=== PATIENT | female | born 1960 | race Caucasian/White ===

== ENCOUNTER 2020-06-22 07:32 | Outpatient (REF) | payer BC, SELFPAY ==
--- NOTE | ~2020-06-22 | MM_ITS ---
EXAMINATION: MM SCREENING DIGITAL BREAST TOMOSYNTHESIS, BILATERAL CLINICAL INFORMATION: Screening. Asymptomatic. The lifetime risk of breast cancer based on the Tyrer-Cuzick Model is 7%. COMPARISON: Mammography: 06/17/2019, 06/11/2018, 06/03/2017 TECHNIQUE: Digital breast tomosynthesis is performed in both the craniocaudal and mediolateral oblique views along with computer-aided detection (CAD). Synthesized 2D images are generated from the tomosynthesis. Additional left MLO view is provided. FINDINGS: There are scattered areas of fibroglandular density (ACR BI-RADS breast composition Category b). There are no significant masses, abnormal calcifications, or other abnormalities. Parenchymal pattern is similar to prior exams. No significant changes. MM/MM tomosynthesis screening BI IMPRESSION: No mammographic evidence of malignancy. ASSESSMENT: BI-RADS 1: Negative RECOMMENDATION: Routine annual mammography screening. This patient's information was entered into a reminder system with a target due date for their next mammogram.
== END 2020-06-22 07:33 | disposition home or self-care (01) ==
LOC: HO.MAMMO 07:32
PROVIDERS: PCP Internal Medicine; Visit Provider Internal Medicine
DX: Z12.31 Encounter for screening mammogram for malignant neoplasm of breast (principal)
CPT/HCPCS: 77063; 77067

== ENCOUNTER 2021-06-28 07:20 | Outpatient (REF) | payer BC, SELFPAY ==
--- NOTE | ~2021-06-28 | MM_ITS ---
EXAMINATION: MM SCREENING DIGITAL BREAST TOMOSYNTHESIS, BILATERAL CLINICAL INFORMATION: Screening. Asymptomatic. The lifetime risk of breast cancer based on the Tyrer-Cuzick Model is 7%. COMPARISON: Mammography: 06/22/2020, 06/17/2019, 06/11/2018 TECHNIQUE: Digital breast tomosynthesis is performed in both the craniocaudal and mediolateral oblique views along with computer-aided detection (CAD). Synthesized 2D images are generated from the tomosynthesis. FINDINGS: There are scattered areas of fibroglandular density (ACR BI-RADS breast composition Category b). There are no significant masses, abnormal calcifications, or other abnormalities. Parenchymal pattern is similar to prior studies. There is no developing density or architectural abnormality. The axilla and skin contours are unremarkable. No significant changes. MM/MM tomosynthesis screening BI IMPRESSION: No mammographic evidence of malignancy. ASSESSMENT: BI-RADS 1: Negative RECOMMENDATION: Routine annual mammography screening. This patient's information was entered into a reminder system with a target due date for their next mammogram.
== END 2021-06-28 07:21 | disposition home or self-care (01) ==
LOC: HO.MAMMO 07:20
PROVIDERS: PCP Internal Medicine; Visit Provider Internal Medicine
DX: Z12.31 Encounter for screening mammogram for malignant neoplasm of breast (principal)
CPT/HCPCS: 77063; 77067

== ENCOUNTER 2022-01-31 08:02 | Outpatient (REF) | payer BC, SELFPAY ==
[2022-01-31 09:58] LABS: Alanine Aminotransferase 16 U/L (0-31); Albumin Level 4.5 g/dL (3.5-5.0); Alkaline Phosphatase 87 U/L (39-117); Anion Gap 15 (12-20); Aspartate Amino Transferase 21 U/L (5-31); Bilirubin Total 0.5 mg/dL (0.0-1.0); Blood Urea Nitrogen 16 mg/dL (9-16); Calcium 9.4 mg/dL (8.4-10.2); Carbon Dioxide 25 mmol/L (22-29); Chloride 107 mmol/L (96-108); Cholesterol 215 mg/dL; Estimated Glomerular Filt Rate > 60; Glucose Fasting 84 mg/dL (60-99); HDL Cholesterol 58 mg/dL; LDL Cholesterol Calculated 143 mg/dl; Potassium 4.1 mmol/L (3.3-5.1); Sodium 143 mmol/L (135-145); Total Protein 6.9 g/dL (6.5-8.0); Triglycerides 74 mg/dL
== END 2022-01-31 08:03 | disposition home or self-care (01) ==
LOC: HO.LAB 08:02
PROVIDERS: PCP Internal Medicine; Visit Provider Internal Medicine
DX: E78.5 Hyperlipidemia, unspecified (principal); E78.00 Pure hypercholesterolemia, unspecified
CPT/HCPCS: 36415; 80053; 80061

== ENCOUNTER 2022-07-07 11:00 | Outpatient (REF) | payer BC, SELFPAY ==
--- NOTE | ~2022-07-07 | MM_ITS ---
EXAMINATION: MM SCREENING DIGITAL BREAST TOMOSYNTHESIS, BILATERAL CLINICAL INFORMATION: Screening. Asymptomatic. The lifetime risk of breast cancer based on the Tyrer-Cuzick Model is 8%. COMPARISON: Mammography: 06/28/2021, 06/22/2020, 06/17/2019 TECHNIQUE: Digital breast tomosynthesis is performed in both the craniocaudal and mediolateral oblique views along with computer-aided detection (CAD). Synthesized 2D images are generated from the tomosynthesis. Additional left MLO view is provided. FINDINGS: There are scattered areas of fibroglandular density (ACR BI-RADS breast composition Category b). There are no significant masses, abnormal calcifications, or other abnormalities. No architectural abnormality or developing density or significant change from prior studies. MM/MM tomosynthesis screening BI IMPRESSION: No mammographic evidence of malignancy. ASSESSMENT: BI-RADS 1: Negative RECOMMENDATION: Routine annual mammography screening. This patient's information was entered into a reminder system with a target due date for their next mammogram.
== END 2022-07-07 11:01 | disposition home or self-care (01) ==
LOC: HO.MAMMO 11:00
PROVIDERS: PCP Internal Medicine; Visit Provider Internal Medicine
DX: Z12.31 Encounter for screening mammogram for malignant neoplasm of breast (principal)
CPT/HCPCS: 77063; 77067

== ENCOUNTER 2023-02-08 07:51 | Outpatient (REF) | payer BC, SELFPAY ==
[2023-02-08 08:55] LABS: Alanine Aminotransferase 21 U/L (0-31); Albumin Level 4.2 g/dL (3.5-5.0); Alkaline Phosphatase 93 U/L (39-117); Anion Gap 15 (12-20); Aspartate Amino Transferase 23 U/L (5-31); Bilirubin Total 0.6 mg/dL (0.0-1.0); Blood Urea Nitrogen 14 mg/dL (9-16); Calcium 9.5 mg/dL (8.4-10.2); Carbon Dioxide 24 mmol/L (22-29); Chloride 108 mmol/L (96-108); Cholesterol 216 mg/dL (<200); Estimated Glomerular Filt Rate > 60; Glucose Fasting 90 mg/dL (60-99); HDL Cholesterol 64 mg/dL (>40); LDL Cholesterol Calculated 134 mg/dL (<100); Potassium 3.9 mmol/L (3.3-5.1); Sodium 143 mmol/L (135-145); Total Protein 6.9 g/dL (6.5-8.0); Triglycerides 94 mg/dL (<150)
== END 2023-02-08 07:52 | disposition home or self-care (01) ==
LOC: HO.LAB 07:51
PROVIDERS: PCP Internal Medicine; Visit Provider Internal Medicine
DX: Z00.00 Encounter for general adult medical examination without abnormal findings (principal); E78.5 Hyperlipidemia, unspecified
CPT/HCPCS: 36415; 80053; 80061

== ENCOUNTER 2023-02-16 15:38 | Outpatient (AMB) | payer BC, SELFPAY ==
--- NOTE | 2023-02-16 15:40 | A.OFFPC_ITS ---
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 Accompanied by: Self / Same As Patient Allergies budesonide [Pulmicort] Allergy (Intermediate, Verified 02/16/23 15:47) muscle cramps fluticasone [Advair Diskus] Allergy (Intermediate, Verified 02/16/23 15:47) muscle cramps montelukast [Singulair] Allergy (Intermediate, Verified 02/16/23 15:47) muscle ache salmeterol [Advair Diskus] Allergy (Intermediate, Verified 02/16/23 15:47) muscle cramps Medication List - Last Reconciled 02/16/23 by Thu Guerrero MD fluticasone propionate 44 mcg/actuation (Flovent HFA) inhalation multivit with min-folic acid 200 mcg (Women's Multivitamin Gummies) tabs PO witch tana 50% (Hemorrhoidal (witch tana)) 1 pad topical BID-QID PRN Tobacco use date assessed: 06/04/22 Dental Screening Dental Screen Date: 02/16/23 Did you have a dental visit in the last 12 months?: Yes Did you have a dental problem in the last 6 months where you did not have access to dental care?: No Was dental information given to patient?: Patient has dentist HPI HPI Comments History of Present Illness Details This is a 62-year-old female that comes for her physical exam. Denies any chest pain or shortness of breath. Last mammogram was 2022 and was normal. Last Pap smear was a year ago at [facility] and was normal as per patient. Last colonoscopy was 9 years ago at [facility]. Next colonoscopy will be 2023. Has moderate lumbar degenerative disc disease follow by [facility]. FOR[facility]LY [facility], [facility] Medical History Moderate persistent asthma Back pain GERD (gastroesophageal reflux disease) Skin lesion Pure hypercholesterolemia Surgical History No pertinent past surgical history Family History Father No problems noted. Mother Bronchiectasis CKD (chronic kidney disease) Diabetes mellitus Mental health disorder Sister No problems noted. Sister No problems noted. Son No problems noted. Daughter No problems noted. Social History Housing: House Alcohol intake: never Patient Tobacco Use Status: Never used Tobacco Tobacco use type: Cigarette e-Cigarette/Vaping Use: Never Used Second Hand Smoke Exposure: No service: No Current occupational status: employed Current occupational exposures/hazards: No Cognitive needs: No Hearing needs: No Vision needs: No Questionnaire Thrive Questionnaire Date Thrive assessed: 06/04/22 SIRIA-7 AMB Questionnaire SIRIA-7 Date SIRIA - 7 assessed: 06/04/22 Source: Developed by Drs. Ed Mendieta, Kerri Mahoney, Micah Burr and colleagues, with an educational carmen from [employer]. Review of Systems Const All systems reviewed & are unremarkable except as noted in HPI and below Eyes Reports no additional complaints, Denies change in vision and Denies other visual disturbances Card Denies chest pain at rest, Denies chest pain with activity, Denies edema, Denies irregular heart rhythm, Denies claudication, Denies dyspnea, Denies dyspnea on exertion, Denies orthopnea, Denies paroxysmal nocturnal dyspnea and Denies slow heart rate Resp Denies cough, Denies dyspnea and Denies dyspnea on exertion GI Denies abdominal pain, Denies change in bowel habits, Denies excessive flatus, Denies nausea and Denies vomiting Denies urinary incontinence, Denies urinary hesitancy and Denies urinary urgency Musc Denies abnormal gait, Reports back pain, Denies atrophy, Denies deformity and Denies limited range of motion Skin/Breast Denies bleeding lesions, Denies changing lesions and Denies rash Neuro Denies abnormal gait and Denies lack of coordination Physical exam (Primary Care) Vital Signs: Last Vital Signs Pulse 98 02/16/23 15:42 BP 148/70 H 02/16/23 15:42 Pulse Ox 99 02/16/23 15:42 Oxygen Delivery Method Room Air 02/16/23 15:42 BMI result Body Mass Index 21.4 Tobacco/Smoking Status: Tobacco use Status Tobacco use date assessed 06/04/22 02/16/23 15:45 Patient Tobacco Use Status Never used Tobacco 02/16/23 15:45 Tobacco use type Cigarette 02/16/23 15:45 e-Cigarette/Vaping Use Never Used 02/16/23 15:45 Thrive Assessment: Date of Thrive Assessment Date Thrive assessed 06/04/22 02/16/23 15:45 Const Orientation/consciousness: patient oriented x3 [facility] Head: Yes normal to inspection, Yes normocephalic and Yes atraumatic Ears: external ears normal Eyes General: appearance normal, both eyes and all related structures Eyelids: Yes eyelids normal Conjunctivae: conjunctivae normal Neck Neck: Yes normal visual inspection and Yes supple Resp Effort & Inspection: normal respiratory effort Auscultation: clear to auscultation bilaterally Cardio Jugular venous distension: no JVD Rate: regular rate Rhythm: regular rhythm Heart sounds: S1 normal heart sound present and S2 normal heart sound present GI Inspection: Yes normal to inspection Palpation (GI): Soft to palpation and nontender Auscultation: normal bowel sounds Skin General skin exam: no rashes or lesions noted Neuro General: patient oriented x3 and no focal motor deficits Extrem General: Yes full ROM Psych Appearance: grossly normal Office Procedures Flu Questionnaire Does the patient have a severe egg allergy?: No Does the patient have severe life threatening allergies?: No Does the patient have a fever or illness today?: No Has the patient ever had Guillain-Eveleth Syndrome?: No Has the patient ever had any past reaction to a flu shot?: No Immunizations flu vacc [id number] 6mos up(PF) 60 mcg(15 mcgx4)/0.5 mL IM syringe Performing Provider: Thu Guerrero MD Performing Location: [facility] Administered by: SUSAN Keane on 02/16/23 16:02 Dose Route Admin Location Dispensed Lot Number Expiration Date NDC Teacher Resource 0.5 mL IM Right Deltoid 0.5 mL [id number] 10/31/23 13148-900-34 [employer] VIS Given Date VIS Provided VIS Publication Date 02/16/23 Single Vaccine 20 Eligibility Eligibility Date Funding Source Not [facility] Eligible 02/16/23 Private Assessment and Plan Assessment & Plan (1) Physical exam: Code(s): Z00.00 - Encounter for general adult medical examination without abnormal findings Plan: Repeat in a year. Orders: Orders Influenza [id number] Immunization Today Z23 - Encounter for immunization Medications: New fluticasone propionate 44 mcg/actuation (Flovent HFA) 2 puffs inhalation BID 10.6 grams 6RF 30 days J45.40 - Moderate persistent asthma, uncomplicated Coding Level of Care Code Est Pt Prev Care 18-39y(99665) Diagnoses Physical exam Z00.00 Time Spent (min) 32
[2023-02-16 15:42] VITALS: BP 148/70; PULSE 98; O2SAT 99; BMI 21.4
== END 2023-02-16 16:05 | disposition home or self-care (01) ==
PROVIDERS: Visit Provider Internal Medicine
DX: Z23 Encounter for immunization (principal); Z00.00 Encounter for general adult medical examination without abnormal findings
CPT/HCPCS: 90471; 90686; 99396

== ENCOUNTER 2023-03-12 14:37 | Outpatient (REF) | payer BC, SELFPAY ==
--- NOTE | ~2023-03-12 | MM_ITS ---
EXAMINATION: BONE DENSITOMETRY CLINICAL INDICATION: Postmenopausal state. COMPARISON: Baseline BD dated 12/25/2014. TECHNIQUE: Using a [employer] DXA System (software version: 13.1) manufactured by [email or web address], dual-energy x-ray absorptiometry was performed of the lumbar spine and left hip. The images are of good technical quality. Summary results are attached. FINDINGS: LEFT FEMUR, NECK: Current: BMD 0.656 g/cm2, Z-score -1.1, T-score -2.7, osteoporosis. Baseline: BMD 0.716 g/cm2. LEFT FEMUR, TOTAL: Current: BMD 0.763 g/cm2, Z-score -0.5, T-score -1.9, osteopenia, 1.8% decrease from baseline (<5% change is not significant). Baseline: BMD 0.777 g/cm2. AP SPINE L1-L4: Current: BMD 0.903 g/cm2, Z-score -0.4, T-score -2.3, osteopenia, 11.9% decrease from baseline (<5% change is not significant). Baseline: BMD 1.025 g/cm2. IDENTIFIED RISK FACTORS: Menopause. HISTORY OF FRACTURE: None listed. MEDICATIONS: Multivitamins. MM/XR DEXA axial skeleton IMPRESSION: 1. DIAGNOSIS: Osteoporosis based on the lowest T-score value of -2.7 in the femoral neck applying World Health Organization criteria. 2. 10-YEAR FRACTURE RISK PREDICTION, FRAX: According to the guidelines, FRAX calculation should only be performed on patients in the osteopenia bone density category. Therefore, FRAX was not performed on this patient. 3. Treatment Recommendations: NOF guidelines recommend consideration for treatment in postmenopausal women and men age 50 and older presenting with the following: -A hip or vertebral (clinical or morphometric) fracture. -T-score less than or equal to -2.5 at the femoral neck or spine after appropriate evaluation to exclude secondary causes. -Low bone mass at the hip or spine and a 10-year fracture probability by FRAX of greater than or equal to 3% for hip fracture or greater than or equal to 20% for major osteoporotic fracture based on the [place] adapted WHO algorithm. 4. Other Recommendations: All treatment decisions require clinical judgment and consideration of individual patient factors, including patient preferences, comorbidities, previous drug use, risk factors not captured in the FRAX model (e.g. frailty, falls, vitamin D deficiency, increased bone turnover, interval significant decline in bone density) and possible under or overestimation of fracture risk by FRAX. Additional medical evaluation for secondary cause of low bone mineral density may be appropriate. FUTURE SCAN RECOMMENDATION: People with diagnosed cases of osteoporosis or at high risk for fracture should have regular bone mineral density tests. For patients eligible for Medicare, routine testing is allowed once every 2 years. The testing frequency can be increased to one year for patients who have rapidly progressing disease, those who are receiving or discontinuing medical therapy to restore bone mass, or have additional risk factors.
== END 2023-03-12 14:38 | disposition home or self-care (01) ==
LOC: HO.MAMMO 14:37
PROVIDERS: PCP Internal Medicine; Visit Provider Nurse Practitioner Women's Health
DX: Z13.820 Encounter for screening for osteoporosis (principal); Z78.0 Asymptomatic menopausal state
CPT/HCPCS: 77080

== ENCOUNTER 2023-07-09 10:46 | Outpatient (REF) | payer BC, SELFPAY ==
--- NOTE | ~2023-07-09 | MM_ITS ---
EXAMINATION: MM SCREENING DIGITAL BREAST TOMOSYNTHESIS, BILATERAL CLINICAL INFORMATION: Screening. Asymptomatic. COMPARISON: Mammography: This study is compared with prior exams dating back to 2019. TECHNIQUE: Digital breast tomosynthesis is performed in both the craniocaudal and mediolateral oblique views along with computer-aided detection (CAD). Synthesized 2D images are generated from the tomosynthesis. FINDINGS: There are scattered areas of fibroglandular density (ACR BI-RADS breast composition Category b). There are 2 focal asymmetries in the upper outer quadrant of the right breast which warrant additional mammographic and targeted sonographic evaluation. In the left breast, there are no significant masses, abnormal calcifications, or other abnormalities. MM/MM tomosynthesis screening BI IMPRESSION: Focal asymmetries of the upper outer quadrant of the right breast warrant additional mammographic and targeted sonographic evaluation. No mammographic signs of malignancy left breast. ASSESSMENT: BI-RADS BI-RADS 0 - Incomplete: Needs additional Imaging. RECOMMENDATION: 1. Additional views of the right breast. 2. Targeted ultrasound if warranted after review of the additional views. 3. Radiology department staff will contact the patient for additional imaging. 1 year F/U This examination should not preclude the clinical evaluation of a suspicious palpable abnormality. This patient's information was entered into a reminder system with a target due date for their next mammogram.
== END 2023-07-09 10:47 | disposition home or self-care (01) ==
LOC: HO.MAMMO 10:46
PROVIDERS: PCP Student in an Organized Health Care Education/Training Program; Visit Provider Internal Medicine
DX: Z12.31 Encounter for screening mammogram for malignant neoplasm of breast (principal)
CPT/HCPCS: 77063; 77067

== ENCOUNTER → 2023-07-09 11:00 | Outpatient (BNV) | payer BC, SELFPAY | PROVIDERS: PCP Student in an Organized Health Care Education/Training Program; Visit Provider Radiology Diagnostic Radiology | DX: Z12.31 Encounter for screening mammogram for malignant neoplasm of breast (principal) | CPT/HCPCS: 77063; 77067 ==

== ENCOUNTER 2023-08-09 14:40 | Outpatient (REF) | payer BC, SELFPAY ==
--- NOTE | ~2023-08-09 | MM_ITS ---
EXAMINATION: MM DIAGNOSTIC DIGITAL BREAST TOMOSYNTHESIS, RIGHT US BREAST LIMITED, RIGHT MAMMOGRAPHY: CLINICAL INFORMATION: Diagnostic Follow-up for 2 immediately adjacent focal asymmetries in the upper outer right breast seen on screening mammography. COMPARISON: Mammography: 07/09/2023, 07/07/2022, 06/28/2021, 06/22/2020, and dating back to 2017. TECHNIQUE: Digital breast tomosynthesis is performed utilizing the following views: Full-field 3-D right mediolateral view, and 3-D spot compression right CC, and right MLO x2 views. FINDINGS: There are scattered areas of fibroglandular density (ACR BI-RADS breast composition Category b). Diagnostic views demonstrate complete dissipation of the focal asymmetries, findings consistent with superimposition artifact of normal overlapping breast tissues. The full-field right ML view also demonstrates nonpersistence, further corroborating summation artifact. No additional suspicious findings noted in the right breast. ULTRASOUND: CLINICAL INFORMATION: Follow-up 2 immediately adjacent focal asymmetries in the upper outer right breast seen on screening mammography. COMPARISON: None TECHNIQUE: Targeted sonographic evaluation was performed using a high frequency linear transducer. Upper outer quadrant of the right breast was interrogated. Selected archived documentation. FINDINGS: RIGHT BREAST: There is a mixture of fatty and fibroglandular tissue. No suspicious mass is seen. There is no cystic abnormality. There is no pathologic acoustic shadowing. There is no correlate sonographically to the asymmetries upper outer right breast in question. MM/MM tomosynthesis added views R IMPRESSION: There are no persistent findings suspicious for malignancy. Findings in the right breast are attributable to superimposition artifact of normal overlapping breast tissue. Recommend the patient resume routine annual screening to include both breasts. OVERALL ASSESSMENT: Mammography: BI-RADS 2 - Benign Findings Ultrasound: BI-RADS 2 - Benign Findings RECOMMENDATION: 1 year F/U Results were provided to the patient at time of visit by the technologist. This patient's information was entered into a reminder system with a target due date for their next mammogram.
== END 2023-08-09 14:41 | disposition home or self-care (01) ==
LOC: HO.MAMMO 14:40
PROVIDERS: PCP Internal Medicine; Visit Provider Internal Medicine
DX: N64.89 Other specified disorders of breast (principal)
CPT/HCPCS: 76642; 77061; 77065

== ENCOUNTER → 2023-08-09 15:00 | Outpatient (BNV) | payer BC, SELFPAY | PROVIDERS: PCP Internal Medicine; Visit Provider Radiology Diagnostic Radiology | DX: R92.8 Other abnormal and inconclusive findings on diagnostic imaging of breast (principal) | CPT/HCPCS: 76642; 77061; 77065 ==

== ENCOUNTER 2024-02-17 07:52 | Outpatient (REF) | payer OTHER, SELFPAY ==
[2024-02-17 09:20] LABS: Alanine Aminotransferase 19 U/L (0-31); Albumin Level 4.5 g/dL (3.5-5.0); Alkaline Phosphatase 61 U/L (39-117); Anion Gap 12 (12-20); Aspartate Amino Transferase 22 U/L (5-31); Bilirubin Total 0.6 mg/dL (0.0-1.0); Blood Urea Nitrogen 10 mg/dL (9-16); Calcium 9.2 mg/dL (8.4-10.2); Carbon Dioxide 27 mmol/L (22-29); Chloride 108 mmol/L (96-108); Cholesterol 238 mg/dL (<200); Estimated Glomerular Filt Rate > 60; Glucose Fasting 96 mg/dL (60-99); HDL Cholesterol 59 mg/dL (>40); LDL Cholesterol Calculated 162 mg/dL (<100); Potassium 3.5 mmol/L (3.3-5.1); Sodium 143 mmol/L (135-145); Total Protein 7.1 g/dL (6.5-8.0); Triglycerides 87 mg/dL (<150)
== END 2024-02-17 07:53 | disposition home or self-care (01) ==
LOC: HO.LAB 07:52
PROVIDERS: PCP Internal Medicine; Visit Provider Internal Medicine
DX: E78.5 Hyperlipidemia, unspecified (principal); I10 Essential (primary) hypertension
CPT/HCPCS: 36415; 80053; 80061

== ENCOUNTER 2024-02-21 15:41 | Outpatient (AMB) | payer OTHER, SELFPAY ==
--- NOTE | 2024-02-21 15:42 | A.OFFPC_ITS ---
Vital Signs 02/21/24 15:43 02/21/24 16:24 Height 5 ft 2 in Weight 115 lb BMI 21.0 BP 178/60 H 160/70 H Blood Pressure Location Lt brachial Lt brachial Position Sitting Sitting Intake Visit Reasons: physical Intake Note: Patient here for a physical exam Guest Services Required: No Accompanied by: Self / Same As Patient Allergies budesonide [Pulmicort] Allergy (Intermediate, Verified 02/21/24 15:58) muscle cramps fluticasone [Advair Diskus] Allergy (Intermediate, Verified 02/21/24 15:58) muscle cramps montelukast [Singulair] Allergy (Intermediate, Verified 02/21/24 15:58) muscle ache salmeterol [Advair Diskus] Allergy (Intermediate, Verified 02/21/24 15:58) muscle cramps Medication List - Last Reconciled 02/21/24 by Thu Guerrero MD alendronate 70 mg PO QWEEK fluticasone propionate 44 mcg/actuation (Flovent HFA) 2 puffs inhalation BID 30 days losartan 25 mg PO DAILY 90 days multivit with min-folic acid 200 mcg (Women's Multivitamin Gummies) tabs PO Tobacco use date assessed: 06/04/22 Dental Screening Dental Screen Date: 02/16/23 HPI HPI Comments History of Present Illness Details This is a 63-year-old female that comes for her physical exam. Mammogram done 2023. Colonoscopy done 2023 showing hyperplastic polyp menses ulcerated polyp. DEXA scan done 2023 showing osteoporosis and this is follow by Rheumatology in [facility]. Last Pap smear was 2020 and was normal. Last Tdap was 2011. Blood pressure elevated and will be recheck in 3 weeks by nurse navigator. No chest pain or shortness on breath. No change in bowel or bladder habits. Cholesterol elevated with a [place] risk score of 9.4%. She wants to hold statins for now. If with decrease the blood pressure the [place] risk score will decrease. [facility] Medical History Moderate persistent asthma Back pain GERD (gastroesophageal reflux disease) Skin lesion Pure hypercholesterolemia Surgical History No pertinent past surgical history Family History Father No problems noted. Mother Bronchiectasis CKD (chronic kidney disease) Diabetes mellitus Mental health disorder Sister No problems noted. Sister No problems noted. Son No problems noted. Daughter No problems noted. Social History Housing: House Alcohol intake: never Patient Tobacco Use Status: Never used Tobacco Tobacco use type: Cigarette e-Cigarette/Vaping Use: Never Used Second Hand Smoke Exposure: No service: No Current occupational status: employed Current occupational exposures/hazards: No Cognitive needs: No Hearing needs: No Vision needs: No Questionnaire PHQ-9 Over the last 2 weeks, how often have you been bothered by any of the following problems? 1. Little interest or pleasure in doing things: not at all 2. Feeling down, depressed, or hopeless: not at all 3. Trouble falling or staying asleep, or sleeping too much: not at all 4. Feeling tired or having little energy: not at all 5. Poor appetite or overeating: not at all 6. Feeling bad about yourself - or that you are a failure or have let yourself or your family down: not at all 7. Trouble concentrating on things, such as reading the newspaper or watching television: not at all 8. Moving or speaking so slowly that other people could have noticed. Or the opposite - being so fidgety or restless that you have been moving around a lot more than usual: not at all 9. Thoughts that you would be better off or of hurting yourself in some way: not at all Total score: 0 Depression Screening Interpretation: Negative Depression Screening Done: Yes 09208 - PHQ-9 Billing: Yes Source: Developed by Drs. Ed Mendieta, Kerri Mahoney, Micah Burr and colleagues, with an educational carmen from [employer]. Thrive Questionnaire Date Thrive assessed: 02/21/24 I am a: Patient What is your living situation today?: I have a steady place to live Within the past 12 months, did the food you bought not last and you didn't have the money to get more?: Never true Within the past 12 months, did you worry whether your food would run out before you got money to buy more?: Never true Do you have trouble paying for medicines?: No Do you have trouble getting transportation to medical appointments?: No Do you have trouble paying your heating and electricity bill?: No Do you have trouble taking care of your child, family member or friend?: No Do you have trouble with day-to-day activities such as bathing, preparing meals, shopping, managing finances, etc.?: No Are you currently unemployed and looking for a job?: No Are you interested in more education?: No Please select the resources that you would like help with: None Currently or been in a relationship where the following occur: No concerns reported THRIVE Score: 0 AUDIT C Alcohol Use Questionnaire (AUDIT-C) 1. How often do you have a drink containing alcohol?: Monthly or less 2. How many drinks containing alcohol do you have on a typical day when you are drinking?: 1 or 2 3. How often do you have six or more drinks on one occasion?: Never Total Score: 1 Score Reviewed/Action Taken: No SIRIA-7 AMB Questionnaire SIRIA-7 Date SIRIA - 7 assessed: 02/21/24 Feeling nervous, anxious, or on edge: 1 = Several days Not being able to stop or control worryin = Not at all Worrying too much about different things: 1 = Several days Trouble relaxin = Several days Being so restless that it is hard to sit still: 0 = Not at all Becoming easily annoyed or irritable: 0 = Not at all Feeling afraid as if something awful might happen: 0 = Not at all Total SIRIA-7 score (0-4 normal; 5-9 mild; 10-14 moderate; 15-21 severe): 3 Source: Developed by Drs. Ed Mendieta, Kerri Mahoney, Micah Burr and colleagues, with an educational carmen from [employer]. SIRIA-7 Assessment Billing SIRIA-7 Assessment Tool: SIRIA-7 Assessment 38611 Review of Systems Const All systems reviewed & are unremarkable except as noted in HPI and below Card Denies chest pain at rest, Denies chest pain with activity, Denies edema, Denies irregular heart rhythm, Denies claudication, Denies dyspnea, Denies dyspnea on exertion, Denies orthopnea, Denies paroxysmal nocturnal dyspnea and Denies slow heart rate Resp Denies cough, Denies dyspnea and Denies dyspnea on exertion GI Denies abdominal pain, Denies change in bowel habits, Denies excessive flatus, Denies nausea and Denies vomiting Physical exam (Primary Care) Vital Signs: Last Vital Signs BP 160/70 H 02/21/24 16:24 BMI result Body Mass Index 21.0 Tobacco/Smoking Status: Tobacco use Status Tobacco use date assessed 06/04/22 02/21/24 15:47 Patient Tobacco Use Status Never used Tobacco 02/21/24 15:47 Tobacco use type Cigarette 02/21/24 15:47 e-Cigarette/Vaping Use Never Used 02/21/24 15:47 PHQ-9: PHQ-9 Score PHQ-9: Total score 0 02/21/24 16:32 Depression Screening Interpretation: Negative Thrive Assessment: Date of Thrive Assessment Date Thrive assessed 02/21/24 02/21/24 15:47 Currently or been in a relationship where the following occur: No concerns reported HENAZ Head: Yes normal to inspection, Yes normocephalic and Yes atraumatic Ears: external ears normal Eyes General: appearance normal, both eyes and all related structures Eyelids: Yes eyelids normal Conjunctivae: conjunctivae normal Neck Neck: Yes normal visual inspection and Yes supple Resp Effort & Inspection: normal respiratory effort Auscultation: clear to auscultation bilaterally Cardio Jugular venous distension: no JVD Rate: regular rate Rhythm: regular rhythm Heart sounds: S1 normal heart sound present and S2 normal heart sound present GI Inspection: Yes normal to inspection Palpation (GI): Soft to palpation and nontender Auscultation: normal bowel sounds Skin General skin exam: no rashes or lesions noted Neuro General: no focal motor deficits Extrem General: Yes full ROM Psych Appearance: grossly normal Office Procedures Flu Questionnaire Does the patient have a severe egg allergy?: No Does the patient have severe life threatening allergies?: No Does the patient have a fever or illness today?: No Has the patient ever had Guillain-[place] Syndrome?: No Has the patient ever had any past reaction to a flu shot?: No Immunizations Fluarix Triv [id number] (PF) 45 mcg (15 mcg x 3)/0.5 mL IM syringe Performing Provider: Thu Guerrero MD Performing Location: [facility] – [place] [facility] Administered by: SUSAN Keane on 02/21/24 16:30 Dose Route Admin Location Dispensed Lot Number Expiration Date [place] [employer] 0.5 mL IM Right Deltoid 0.5 mL [id number] 10/30/24 [id number] VIS Given Date VIS Provided VIS Publication Date 02/21/24 Single Vaccine 20 Eligibility Eligibility Date Funding Source Not VFC Eligible 02/21/24 Private Boostrix Tdap 2.5 Lf unit-8 mcg-5 Lf/0.5 mL intramuscular syringe Performing Provider: Thu Guerrero MD Performing Location: [facility] – [place] [facility] Administered by: SUSAN Keane on 02/21/24 16:30 Dose Route Admin Location Dispensed Lot Number Expiration Date [place] [employer] Supervisor 0.5 mL IM Left Deltoid 0.5 mL [id number] 01/28/25 [id number] [email or web address] VIS Given Date VIS Provided VIS Publication Date 02/21/24 Single Vaccine 20 Eligibility Eligibility Date Funding Source Not VFC Eligible 02/21/24 Private Coding Level of Care Code Est Pt Prev Care 40-64y(80808) Diagnoses Physical exam Z00.00 Additional Codes SIRIA-7 Assessment Billing - SIRIA-7 Assessment Tool: SIRIA-7 Assessment 99036 ([id number]) Time Spent (min) 31 Assessment & Plan Assessment & Plan (1) Physical exam: Code(s): Z00.00 - Encounter for general adult medical examination without abnormal findings Category: Medical Plan: Repeat in a year. Orders: Orders Influenza [id number] Immunization Today Z23 - Encounter for immunization TDaP Immunization Today Z23 - Encounter for immunization
[2024-02-21 15:43] VITALS: BP 178/60; BMI 21.0
[2024-02-21 16:24] VITALS: BP 160/70
== END 2024-02-21 16:38 | disposition home or self-care (01) ==
PROVIDERS: PCP Internal Medicine; Visit Provider Internal Medicine
DX: Z23 Encounter for immunization (principal); Z00.00 Encounter for general adult medical examination without abnormal findings

== ENCOUNTER → 2024-02-21 15:41 | Outpatient (BNVA) | payer OTHER, SELFPAY | PROVIDERS: PCP Internal Medicine; Visit Provider Internal Medicine | DX: Z00.00 Encounter for general adult medical examination without abnormal findings (principal); Z23 Encounter for immunization | CPT/HCPCS: 90471; 90472; 90656; 90715; 96127 ==

== ENCOUNTER → 2024-04-07 10:26 | Outpatient (BNVA) | payer OTHER, SELFPAY | PROVIDERS: PCP Internal Medicine ==

== ENCOUNTER 2024-06-29 10:31 | Outpatient (AMB) | payer OTHER, SELFPAY ==
--- NOTE | 2024-06-29 10:48 | A.OFFPC_ITS ---
Vital Signs 06/29/24 10:49 Height 5 ft 2 in Weight 110 lb 4 oz BMI 20.2 BP 128/64 Blood Pressure Location Rt brachial Position Sitting Pulse 120 H Pulse Source Pulse Oximeter Temp 97.1 F Temp Source Temporal Artery Scan Pulse Oximetry (%) 100 Oxygen Delivery Method Room Air Intake Visit Reasons: bp Managed Care Liaison Required: No Accompanied by: Self / Same As Patient Allergies budesonide [Pulmicort] Allergy (Intermediate, Verified 06/29/24 11:02) muscle cramps fluticasone [Advair Diskus] Allergy (Intermediate, Verified 06/29/24 11:02) muscle cramps montelukast [Singulair] Allergy (Intermediate, Verified 06/29/24 11:02) muscle ache salmeterol [Advair Diskus] Allergy (Intermediate, Verified 06/29/24 11:02) muscle cramps Medication List - Last Reconciled 06/29/24 by Thu Guerrero MD budesonide 90 mcg/actuation (Pulmicort Flexhaler) 1 inh inhalation BID 30 days fluticasone furoate 50 mcg/actuation (Arnuity Ellipta) 1 inh inhalation Q24H 30 days losartan 50 mg PO DAILY multivit with min-folic acid 200 mcg (Women's Multivitamin Gummies) tabs PO umeclidinium-vilanterol 62.5-25 mcg/actuation (Anoro Ellipta) 1 inh inhalation DAILY 30 days Tobacco use date assessed: 06/29/24 Fall risk assessment: No Falls in past year Last assessed Fall Risk: 06/29/24 Dental Screening Dental Screen Date: 06/29/24 Did you have a dental visit in the last 12 months?: Yes Did you have a dental problem in the last 6 months where you did not have access to dental care?: No Was dental information given to patient?: Patient has dentist HPI HPI Comments History of Present Illness Details The patient is a 64-year-old female presenting with complaints of musculoskeletal and nerve-related pain localized to the cervical and thoracic regions, impacting both arms. This condition began in May after an initially suspected case of shingles, characterized by persistent burning sensations and a [id number] rash. Subsequent evaluations suggested eczema, with no resolution of symptoms following antiviral therapy. Interventions include chiropractic and massage therapy, noting significant improvement post-massage despite residual burning and tingling. Additionally, the patient reviews challenges in asthma management, citing cost- prohibitive medication treatment with Pulmicort. Asthma control currently appears stable with intermittent Ellipta use. Last, bone health issues arose following complications with alendronate, prompting exploration into other osteoporosis treatments given a scheduled March 2023 bone density test. The patient maintains daily management of hypertension with Losartan 50 mg, and past elevated cholesterol levels are set for reassessment in January. [facility] Medical History (Updated 06/29/24 @ 11:57 by Thu Guerrero MD) Moderate persistent asthma Back pain GERD (gastroesophageal reflux disease) Skin lesion Pure hypercholesterolemia Surgical History No pertinent past surgical history Family History Father No problems noted. Mother Bronchiectasis CKD (chronic kidney disease) Diabetes mellitus Mental health disorder Sister No problems noted. Sister No problems noted. Son No problems noted. Daughter No problems noted. Social History Housing: House Alcohol intake: never Patient Tobacco Use Status: Never used Tobacco Tobacco use type: Cigarette e-Cigarette/Vaping Use: Never Used Second Hand Smoke Exposure: No service: No Current occupational status: employed Current occupational exposures/hazards: No Cognitive needs: No Hearing needs: No Vision needs: No Questionnaire PHQ-9 Over the last 2 weeks, how often have you been bothered by any of the following problems? 1. Little interest or pleasure in doing things: not at all 2. Feeling down, depressed, or hopeless: not at all 3. Trouble falling or staying asleep, or sleeping too much: not at all 4. Feeling tired or having little energy: not at all 5. Poor appetite or overeating: not at all 6. Feeling bad about yourself - or that you are a failure or have let yourself or your family down: not at all 7. Trouble concentrating on things, such as reading the newspaper or watching television: not at all 8. Moving or speaking so slowly that other people could have noticed. Or the opposite - being so fidgety or restless that you have been moving around a lot more than usual: not at all 9. Thoughts that you would be better off or of hurting yourself in some way: not at all Total score: 0 Depression Screening Interpretation: Negative Depression Screening Done: Yes 56203 - PHQ-9 Billing: Yes Source: Developed by Drs. Ed Mendieta, Kerri Mahoney, Micah Burr and colleagues, with an educational carmen from [employer]. Thrive Questionnaire Date Thrive assessed: 06/29/24 I am a: Patient What is your living situation today?: I have a steady place to live Within the past 12 months, did the food you bought not last and you didn't have the money to get more?: Never true Within the past 12 months, did you worry whether your food would run out before you got money to buy more?: Never true Do you have trouble paying for medicines?: No Do you have trouble getting transportation to medical appointments?: No Do you have trouble paying your heating and electricity bill?: No Do you have trouble taking care of your child, family member or friend?: No Do you have trouble with day-to-day activities such as bathing, preparing meals, shopping, managing finances, etc.?: No Are you currently unemployed and looking for a job?: No Are you interested in more education?: No Please select the resources that you would like help with: None Currently or been in a relationship where the following occur: No concerns reported THRIVE Score: 0 AUDIT C Alcohol Use Questionnaire (AUDIT-C) 1. How often do you have a drink containing alcohol?: Monthly or less 2. How many drinks containing alcohol do you have on a typical day when you are drinking?: 1 or 2 3. How often do you have six or more drinks on one occasion?: Never Total Score: 1 Score Reviewed/Action Taken: No SIRIA-7 AMB Questionnaire SIRIA-7 Date SIRIA - 7 assessed: 02/21/24 Source: Developed by Drs. Ed Mendieta, Kerri Mahoney, Micah Burr and colleagues, with an educational carmen from [employer]. Review of Systems Const All systems reviewed & are unremarkable except as noted in HPI and below ENT Reports neck pain Card Denies chest pain at rest, Denies chest pain with activity, Denies edema, Denies irregular heart rhythm, Denies claudication, Denies dyspnea, Denies dyspnea on exertion, Denies orthopnea, Denies paroxysmal nocturnal dyspnea and Denies slow heart rate Resp Denies cough, Denies dyspnea and Denies dyspnea on exertion GI Denies abdominal pain, Denies change in bowel habits, Denies excessive flatus, Denies nausea and Denies vomiting Denies urinary incontinence, Denies urinary hesitancy and Denies urinary urgency Musc Reports back pain, Denies atrophy, Denies deformity, Denies limited range of motion, Reports neck pain and Reports radiating pain into limb Skin/Breast Reports lesions Physical exam (Primary Care) Vital Signs: Last Vital Signs Temp 97.1 F 06/29/24 10:49 Pulse 120 H 06/29/24 10:49 BP 128/64 06/29/24 10:49 Pulse Ox 100 06/29/24 10:49 Oxygen Delivery Method Room Air 06/29/24 10:49 BMI result Body Mass Index 20.2 Tobacco/Smoking Status: Tobacco use Status Tobacco use date assessed 06/29/24 06/29/24 10:55 Patient Tobacco Use Status Never used Tobacco 06/29/24 10:55 Tobacco use type Cigarette 06/29/24 10:55 e-Cigarette/Vaping Use Never Used 06/29/24 10:55 PHQ-9: PHQ-9 Score PHQ-9: Total score 0 06/29/24 10:55 Depression Screening Interpretation: Negative Thrive Assessment: Date of Thrive Assessment Date Thrive assessed 06/29/24 06/29/24 10:55 Currently or been in a relationship where the following occur: No concerns reported Neck Neck: Yes normal visual inspection and Yes supple Resp Effort & Inspection: normal respiratory effort Auscultation: clear to auscultation bilaterally Cardio Jugular venous distension: no JVD Rate: regular rate Rhythm: regular rhythm Heart sounds: S1 normal heart sound present and S2 normal heart sound present Back/Spine/Pelvis Thoracic/Lumbar Spine: thoracic spinal tenderness Skin Lesions: lesion noted Extrem General: Yes full ROM Coding Level of Care Code Est Pt Level 4 (04003) Complex EM visit Add On G2211 Diagnoses Essential hypertension I10 Age-related osteoporosis without current pathological fracture M81.0 Osteoporosis type: age-related Presence of current pathological fracture: without current pathological fracture Pure hypercholesterolemia E78.00 Moderate persistent asthma without complication J45.40 Asthma complication type: uncomplicated Chronic midline thoracic back pain M54.6; G89.29 Back pain location: thoracic back pain Chronicity: chronic Back pain laterality: midline Muscle spasm M62.838 Eczema, unspecified type L30.9 Eczema type: unspecified Additional Codes PHQ-9 - 16102 - PHQ-9 Billing: Yes ([id number]) Time Spent (min) 23 Assessment & Plan Assessment & Plan (1) Essential hypertension: Code(s): I10 - Essential (primary) hypertension Category: Medical (2) Osteoporosis: Code(s): M81.0 - Age-related osteoporosis without current pathological fracture Category: Medical Qualifiers: Osteoporosis type: age-related Presence of current pathological fracture: without current pathological fracture Qualified Code(s): M81.0 - Age- related osteoporosis without current pathological fracture (3) Pure hypercholesterolemia: Code(s): E78.00 - Pure hypercholesterolemia, unspecified Category: Medical (4) Moderate persistent asthma: Code(s): J45.40 - Moderate persistent asthma, uncomplicated Category: Medical Qualifiers: Asthma complication type: uncomplicated Qualified Code(s): J45.40 - Moderate persistent asthma, uncomplicated (5) Back pain: Code(s): M54.9 - Dorsalgia, unspecified Category: Medical Qualifiers: Back pain location: thoracic back pain Chronicity: chronic Back pain laterality: midline Qualified Code(s): M54.6 - Pain in thoracic spine; G89.29 - Other chronic pain (6) Muscle spasm: Code(s): M62.838 - Other muscle spasm Category: Medical (7) Eczema: Code(s): L30.9 - Dermatitis, unspecified Category: Medical Qualifiers: Eczema type: unspecified Qualified Code(s): L30.9 - Dermatitis, unspecified Plan Management for musculoskeletal pain includes potential prescription of a muscle relaxant for symptomatic relief and possible referral to [facility] for further evaluation. Asthma management will utilize Ellipta on an as- needed basis, with further options being available. Bone health management involves consideration of alternatives like Reclast or Prolia infusions, keeping in line with bone density test scheduling. Dermatological concerns will continue to be monitored with forthcoming dermatology consultations. Reevaluation of cholesterol levels is planned for January. Patient was informed and verbally consented to the use of an ambient scribe for clinic note documentation during this visit. I discussed the differential diagnosis for the musculoskeletal pain, considering possible cervical radiculopathy, and advised further evaluation at [facility] if symptoms persist. The asthma management plan involves Ellipta with attention given to cost-effectiveness; Trelegy alternatives were reviewed due to pricing and patient history. I explored Reclast and Prolia as osteoporosis interventions in light of adverse alendronate reactions, with emphasis on aligning treatment with bone density testing in March. Both benefits and potential side effects were outlined. I will reassess lipid levels during the patient's next scheduled check-up. The patient was informed of potential side effects of muscle relaxants on sleep and agreed to the proposed treatment modifications. Orders: Orders Lipid Panel 8 Months E78.5 - Hyperlipidemia, unspecified XR DEXA axial skeleton 8 Months Z78.0 - Asymptomatic menopausal state Comprehensive [place]. Panel Fast 8 Months I10 - Essential (primary) hypertension Medications: New cyclobenzaprine 5 mg PO BEDTIME 30 days PRN 30 tabs 0RF muscle spasm triamcinolone acetonide 0.1% 1 appl topical DAILY 30 days PRN 30 grams 2RF rash Refilled umeclidinium-vilanterol 62.5-25 mcg/actuation (Anoro Ellipta) 1 inh inhalation DAILY 30 days 60 ea 6RF Patient Instructions: - Use Ellipta inhaler as needed for asthma management. - Consider continuing massage therapy for musculoskeletal symptoms. - Monitor symptoms and notify if they worsen or do not improve within two weeks. - Prepare for bone density testing scheduled in March. - Return for cholesterol level reassessment in January. - Follow dermatology treatment recommendations and update as needed. - Contact the clinic for additional referrals or further concerns.
[2024-06-29 10:49] VITALS: BP 128/64; PULSE 120; TEMP 36.2; O2SAT 100; BMI 20.2
--- OUTSIDE RECORDS SUMMARY | 2024-06-29 12:18 | XMS_ITS | Data Portability ---
Author Organization [facility] Boucher [facility] [address] Address [address] [place] [address] Care Team Providers Care Hourly Manager Name Role Phone ALANA AYOUB Primary Care Provider [phone] Assessment No assessment recorded. Plan of Treatment Reminders Order Date Submit Date Provider Last Modified By Organization Details Last Modified Time Details Appointments None recorded. Lab None recorded. Referral None recorded. Procedures None recorded. Surgeries None recorded. Imaging None recorded. Medication Orders clobetasol 0.05 % topical ointment 2024 025 [employer] [facility]/Pharmacy #1972, [address] [place] [address], [address], 5 13:47:37 gabapentin [address] capsule [address] [facility]/Pharmacy #1972, [address] [place], [address], 5 13:47:39 Patient TargetsNo targets recorded. Patient InstructionsNo instructions recorded. Reason for Referral None Reported. Problems Name Problem SNOMED Code Status Onset Date Resolution Date Notes Provider Name and Address Organization Details Recorded Time Hypertensive disorder [id number] Active [facility] Hurtado [facility] 13:29:50 Problem Notes None recorded. Medical Equipment None Reported. Allergies No known drug allergies Medications Name Sig Start Date Stop Date Status Note LastModified by Organization Details LastModified Time losartan 50 mg tablet TAKE 1 TABLET BY MOUTH EVERY DAY active Not Available Not Available No t Available amoxicillin 500 mg capsule TAKE 1 CAPSULE BY MOUTH EVERY 8 HOURS UNTIL FINISHED active Not Available Not Available No t Available valacyclovir 1 gram tablet TAKE 1 TABLET BY MOUTH THREE TIMES A DAY FOR 7 DAYS active Not Available Not Available N ot Available alendronate 70 mg tablet PLEASE SEE ATTACHED FOR DETAILED DIRECTIONS active Not Available Not Available N ot Available triamcinolon e acetonide 0.1 % topical cream APPLY TOPICALLY DAILY FOR 14 DAYS - DO NOT USE ON FACE active Not Available Not Available No t Available amoxicillin 875 mg tablet TAKE 1 TABLET BY MOUTH 2 TIMES A DAY FOR 5 DAYS. active Not Available Not Available Not Available fluticasone propionate 44 mcg/actuatio n HFA aerosol inhaler INHALE 2 PUFFS INTO THE LUNGS TWICE A DAY FOR 30 DAYS active Not Available Not Available Not Available losartan 25 mg tablet TAKE 1 TABLET BY MOUTH EVERY DAY active Not Available Not Available No t Available gabapentin 300 mg capsule TAKE 1 CAPSULE BY MOUTH EVERY DAY AT BEDTIME FOR 14 DAYS active Not Available Not Available No t Available clobetasol 0.05 % topical ointment APPLY THIN COAT TO AFFECTED AREA TWICE A DAY active Not Available Not Available No t Available Pulmicort Flexhaler 90 mcg/actuatio n breath activated INHALE 1 PUFF 2 TIMES A DAY FOR 30 DAYS active Not Available Not Available Not Available Plenvu 140 gram-9 gram-5.2 gram powder packs TAKE 3 PACKET BY MOUTH DIRECTED FOLLOW INSTRUCTION S PROVIDED BY DOCTOR IN OFFICE active Not Available Not Available No t Available Vitals Date Recorded Body height Body mass index (BMI) Body weight Pain severity - 0-10 verbal numeric rating [Score] - Reported Body temperature Respiratory rate Oxygen saturation Oxygen saturation in Arterial blood by Pulse oximetry Heart rate Systolic blood pressure Diastolic blood pressure Provider Name and Address Organization Details Last Updated DateTime 5 154.94 cm 20.8 kg/m2 42422.1 6 g 6 97.8 [degF] 18 /min 100 % 100 % 136 /min 161 mm[Hg] 77 mm[Hg] Tiff Parrish PA - [employer] [facility] 13:33:40 Social History Question Answer Notes LastModified by Organizat ion Details LastModified Time Tobacco Smoking Status Never Smoker Tiff arias PA [facility] 05/23/2024 13:30:41 What Is Your Level Of Alcohol Consumption? None Information not available 05/23/2024 Have You Had A Flu Shot This Season? Yes [email or web address] Information not available 05/23/2024 Do You Use Any Illicit Or Recreational Drugs? No [email or web address] Information not available 05/23/2024 Have You Recently Traveled Abroad? No [email or web address] Information not available 05/23/2024 Sex: Unknown Functional Status None recorded. Mental Status None recorded. Family History Relationship Description Onset Age of this Age Resolved Age Notes LastModified by Organization Details LastModified Time Father No current problems or disability deceas ed [email or web address] Not available 05/23/2024 13:30:16 Mother No current problems or disability [email or web address] Not available 05/23 13:29:58 Medical History No medical history recorded. Gynecological HistoryNo gynecological history recorded. Obstetrics History GPAL:G 0 P 0 0 0 0 Past Encounters Encounter ID Performer Location Encounter Start Date Encounter Closed Date Diagnosis/Indication Diagnosis SNOMED-CT Code Diagnosis ICD10 Code Diagnosis Note [id number] [facility]ERMAN Pollack [address] [place] [address] 05/23/2024 13:15:19 05/23/2024 13:48:09 Pruritic rash 40295824 L28.2 You were seen today for a rash that is causing pain, burning, and itching.Th ere are many things that can cause this, but we will try to make you more comfortabl e while you arrange appts with your PCP.Use the clobetasol topical twice a day for up to 2 weeks. If it is not helping within 4 days, stop using it.The gabapentin can be taken at night and should help with your pain Please go to the ED if you are having severe symptoms, if the rash is spreading or is accompanie d by fevers Thank you for using [facility] today, please feel free to contact our office if you have any questions or concerns. Health Concerns Section Related Observation LastModified by Organization Detai ls LastModified Time None Recorded Concern Status LastModified by Organization Details LastModified Time None Recorded Advance Directives Directive None Recorded Payers Encounter Date Sequence Insurance Name Policy Number Policy Porter Covered Member ID Porter Member ID Guarantor Name 05/23/2024 2 [employer] - [employer] (PPO) [id number] Sonya Greenville [id number] Sonya Greenville Notes Date Note Type Note Provider Name and Address Organization Details Recorded Time 05/23/2024 text/html 64 y/o female he re with rash to her upper back, chest, and arms for 3 weeks. Initially diagnosed with shingles and treated with valacyclovir. The rash is very itchy, burning, and painful. She has tried multiple topicals with only hydrocortisone helping at all. GERMAN Pollack [address] [place], [address], [place] - [facility] 05/23/2024 13:52:17 OBGyn Episode No OBEpisode recorded.
== END 2024-06-29 11:17 | disposition home or self-care (01) ==
PROVIDERS: PCP Internal Medicine; Visit Provider Internal Medicine
DX: I10 Essential (primary) hypertension (principal); M81.0 Age-related osteoporosis without current pathological fracture; E78.00 Pure hypercholesterolemia, unspecified; J45.40 Moderate persistent asthma, uncomplicated; M54.6 Pain in thoracic spine; G89.29 Other chronic pain; M62.838 Other muscle spasm; L30.9 Dermatitis, unspecified

== ENCOUNTER → 2024-06-29 10:31 | Outpatient (BNVA) | payer OTHER, SELFPAY | PROVIDERS: PCP Internal Medicine; Visit Provider Internal Medicine | DX: I10 Essential (primary) hypertension (principal); M81.0 Age-related osteoporosis without current pathological fracture; E78.00 Pure hypercholesterolemia, unspecified; J45.40 Moderate persistent asthma, uncomplicated; G89.29 Other chronic pain; M54.6 Pain in thoracic spine; M62.838 Other muscle spasm; L30.9 Dermatitis, unspecified | CPT/HCPCS: 96127 ==

== ENCOUNTER 2024-07-18 11:39 | Outpatient (REF) | payer MEDICARE, OTHER, SELFPAY ==
--- OUTSIDE RECORDS SUMMARY | 2024-07-18 14:11 | XMS_ITS | Data Portability ---
Author Organization [facility] Boucher [facility] [address] Address [address] [place] [address] Care Team Providers Care Publications Editor Name Role Phone ALANA AYOUB Primary Care Provider Assessment No assessment recorded. Plan of Treatment Reminders Order Date Submit Date Provider Last Modified By Organization Details Last Modified Time Details Appointments None recorded. Lab None recorded. Referral None recorded. Procedures None recorded. Surgeries None recorded. Imaging None recorded. Medication Orders clobetasol 0.05 % topical ointment 2024 025 [employer] [facility]/Pharmacy #1972, [address] [place] [address], [address], 5 13:47:37 gabapentin 300 mg capsule 2024 025 [facility]/Pharmacy #1972, [address] [place], [address], 5 13:47:39 Patient TargetsNo targets recorded. Patient InstructionsNo instructions recorded. Reason for Referral None Reported. Problems Name Problem SNOMED Code Status Onset Date Resolution Date Notes Provider Name and Address Organization Details Recorded Time Hypertensive disorder [id number] Active [facility] Hurtado [facility] 13:29:50 Problem Notes [...] Updated DateTime 5 154.94 cm 20.8 kg/m2 48737.1 6 g 6 97.8 [degF] 18 /min 100 % 100 % 136 /min 161 mm[Hg] 77 mm[Hg] Tiff Parrish PA - [employer] [facility] 13:33:40 Social History Question Answer Notes LastModified by Organizat ion Details LastModified Time Tobacco Smoking Status Never Smoker Tiff arias PA [facility] 05/23/2024 13:30:41 What Is Your Level Of Alcohol Consumption? None [email or web address] Information not available 05/23/2024 Have You Had A Flu Shot This Season? Yes [email or web address] Information not available 05/23/2024 Do You Use Any Illicit Or Recreational Drugs? No [email or web address] Information not available 05/23/2024 Have You Recently Traveled Abroad? No [email or web address] Information not available 05/23/2024 Sex: Unknown Functional Status None recorded. Mental Status None recorded. Family History Relationship Description Onset Age of this Age Resolved Age Notes LastModified by Organization Details LastModified Time Father No current problems or disability deceas ed [email or web address] Not available 05/23/2024 13:30:16 Mother No current problems or disability [email or web address] Not available 05/23 13:29:58 Medical History No medical history recorded. Gynecological HistoryNo gynecological history recorded. Obstetrics History GPAL:G 0 P 0 0 0 0 Past Encounters Encounter ID Performer Location Encounter Start Date Encounter Closed Date Diagnosis/Indication Diagnosis SNOMED-CT Code Diagnosis ICD10 Code Diagnosis Note [id number] GERMAN Pollack [address] [place] [address] 05/23/2024 13:15:19 05/23/2024 13:48:09 Pruritic rash [id number] L28.2 You were seen today for a [...] Name 05/23/2024 2 MULTIPL[employer] - [employer] (PPO) [id number] Sonya Hendry [id number] Sonya Hendry Notes Date Note Type Note Provider Name [...] GERMAN Pollack [address] [place], [address], [place] - [facility] 05/23/2024 13:52:17 OBGyn Episode No OBEpisode recorded.
== END 2024-07-18 11:40 | disposition home or self-care (01) ==
LOC: HO.MAMMO 11:39
PROVIDERS: PCP Internal Medicine; Visit Provider Internal Medicine
DX: Z12.31 Encounter for screening mammogram for malignant neoplasm of breast (principal)
CPT/HCPCS: 77063; 77067

== ENCOUNTER → 2024-07-18 12:00 | Outpatient (BNV) | payer MEDICARE, OTHER, SELFPAY | PROVIDERS: PCP Internal Medicine; Visit Provider Internal Medicine | DX: Z12.31 Encounter for screening mammogram for malignant neoplasm of breast (principal) | CPT/HCPCS: 77063; 77067 ==

== ENCOUNTER 2025-02-23 08:07 | Outpatient (REF) | payer MEDICARE, OTHER, SELFPAY ==
[2025-02-23 09:08] LABS: Alanine Aminotransferase 24 U/L (0-31); Albumin Level 4.7 g/dL (3.5-5.0); Alkaline Phosphatase 72 U/L (39-117); Anion Gap 11 (12-20); Aspartate Amino Transferase 26 U/L (5-31); Blood Urea Nitrogen 16 mg/dL (9-16); Calcium 9.3 mg/dL (8.4-10.2); Carbon Dioxide 29 mmol/L (22-29); Chloride 106 mmol/L (96-108); Cholesterol 274 mg/dL (<200); Estimated Glomerular Filt Rate > 60; HDL Cholesterol 65 mg/dL (>40); Potassium 4.3 mmol/L (3.3-5.1); Sodium 142 mmol/L (135-145); Total Protein 7.2 g/dL (6.5-8.0); Triglycerides 88 mg/dL (<150)
== END 2025-02-23 08:08 | disposition home or self-care (01) ==
LOC: HO.LAB 08:07
PROVIDERS: PCP Internal Medicine; Visit Provider Internal Medicine
DX: I10 Essential (primary) hypertension (principal); E78.5 Hyperlipidemia, unspecified; E55.9 Vitamin D deficiency, unspecified
CPT/HCPCS: 36415; 80053; 80061; 82306

== ENCOUNTER 2025-02-28 08:14 | Outpatient (AMB) | payer MEDICARE, OTHER, SELFPAY ==
[2025-02-28 08:18] VITALS: BP 148/72; PULSE 128; TEMP 36.2; O2SAT 99; BMI 20.9
--- NOTE | 2025-02-28 08:18 | MHC.PC.OV ---
Vital Signs 02/28/25 08:18 02/28/25 08:48 Height 5 ft 2 in Weight 114 lb 6 oz BMI 20.9 BP 148/72 H 122/84 Blood Pressure Location Rt brachial Lt brachial Position Sitting Sitting Pulse 128 H Pulse Source Pulse Oximeter Temp 97.1 F Temp Source Temporal Artery Scan Pulse Oximetry (%) 99 Oxygen Delivery Method Room Air Intake Visit Reasons: Annual Exam Remediation [employer]anal[employer] Consultant Required: No Accompanied by: Self / Same As Patient Allergies budesonide (Pulmicort) Allergy (Intermediate, Verified 02/28/25 08:27) muscle cramps fluticasone (Advair Diskus) Allergy (Intermediate, Verified 02/28/25 08:27) muscle cramps montelukast (Singulair) Allergy (Intermediate, Verified 02/28/25 08:27) muscle ache salmeterol (Advair Diskus) Allergy (Intermediate, Verified 02/28/25 08:27) muscle cramps Medication List - Last Reconciled 02/28/25 by Thu Guerrero MD fluticasone furoate 50 mcg/actuation (Arnuity Ellipta) 1 inh inhalation Q24H 30 days losartan 50 mg PO DAILY multivit with min-folic acid 200 mcg (Women's Multivitamin Gummies) tabs PO omeprazole magnesium (Prilosec OTC) 20 mg PO DAILY triamcinolone acetonide 0.1% 1 appl topical DAILY PRN 30 days umeclidinium-vilanterol 62.5-25 mcg/actuation (Anoro Ellipta) 1 inh inhalation DAILY 30 days Tobacco use date assessed: 02/28/25 Fall risk assessment: No Falls in past year Last assessed Fall Risk: 02/28/25 Dental Screening Dental Screen Date: 02/28/25 Did you have a dental visit in the last 12 months?: Yes Did you have a dental problem in the last 6 months where you did not have access to dental care?: No Was dental information given to patient?: Patient has dentist HPI HPI Comments History of Present Illness Details The patient is a 64-year-old female presenting for an annual physical exam. Her blood pressure was elevated in the office, but she reports it is well-controlled at home, typically around 122/84 mmHg and not exceeding 135 mmHg. She is adherent with her daily losartan 50 mg. Recent blood work revealed an elevated total cholesterol of 274, though her triglycerides and HDL are within normal limits, which is consistent with her reported healthy diet. She eats chicken and fish, avoids fried foods, potato chips, and hamburgers, and exercises daily on a treadmill for 30 minutes. The patient reports chronic, severe back pain with tight muscles and a palpable knot, which radiates down her leg. She has undergone five months of physical therapy, received lidocaine injections, and is currently seeing a chiropractor. This pain contributes to her anxiety. Her medical history is notable for asthma, for which she uses a Flovent inhaler as needed, and GERD, managed with as-needed Prilosec. She has a history of kidney stones but currently has normal kidney function. Her mother is alive with chronic kidney disease, diabetes, and bronchiectasis, and her father at age 44 from liver cancer. The patient is a never-smoker. Regarding health maintenance, she is up to date on her Tdap and shingles vaccinations. She had a bone density scan in March 2023 and has a follow-up appointment scheduled. A mammogram was normal, and a colonoscopy last year revealed a hyperplastic polyp and a sessile serrated polyp. [facility] Medical History Moderate persistent asthma Back pain GERD (gastroesophageal reflux disease) Skin lesion Pure hypercholesterolemia Surgical History No pertinent past surgical history Family History Father No problems noted. Mother Bronchiectasis CKD (chronic kidney disease) Diabetes mellitus Mental health disorder Sister No problems noted. Sister No problems noted. Son No problems noted. Daughter No problems noted. Social History Housing: House Alcohol intake: never Patient Tobacco Use Status: Never used Tobacco Tobacco use type: Cigarette e-Cigarette/Vaping Use: Never Used Second Hand Smoke Exposure: No service: No Current occupational status: employed Current occupational exposures/hazards: No Cognitive needs: No Hearing needs: No Vision needs: No Questionnaire PHQ-9 Over the last 2 weeks, how often have you been bothered by any of the following problems? 1. Little interest or pleasure in doing things: not at all 2. Feeling down, depressed, or hopeless: not at all 3. Trouble falling or staying asleep, or sleeping too much: not at all 4. Feeling tired or having little energy: not at all 5. Poor appetite or overeating: not at all 6. Feeling bad about yourself - or that you are a failure or have let yourself or your family down: not at all 7. Trouble concentrating on things, such as reading the newspaper or watching television: not at all 8. Moving or speaking so slowly that other people could have noticed. Or the opposite - being so fidgety or restless that you have been moving around a lot more than usual: not at all 9. Thoughts that you would be better off or of hurting yourself in some way: not at all Total score: 0 Depression Screening Interpretation: Negative Depression Screening Done: Yes 27271 - PHQ-9 Billing: Yes Source: Developed by Drs. Ed Mendieta, Kerri Mahoney, Micah Burr and colleagues, with an educational carmen from [employer]. Thrive Questionnaire Date Thrive assessed: 02/21/25 I am a: Patient What is your living situation today?: I have a steady place to live Within the past 12 months, did the food you bought not last and you didn't have the money to get more?: Never true Within the past 12 months, did you worry whether your food would run out before you got money to buy more?: Never true Do you have trouble paying for medicines?: No Do you have trouble getting transportation to medical appointments?: No Do you have trouble paying your heating and electricity bill?: No Do you have trouble taking care of your child, family member or friend?: No Do you have trouble with day-to-day activities such as bathing, preparing meals, shopping, managing finances, etc.?: No Are you currently unemployed and looking for a job?: No Are you interested in more education?: No Please select the resources that you would like help with: None Currently or been in a relationship where the following occur: No concerns reported THRIVE Score: 0 AUDIT C Alcohol Use Questionnaire (AUDIT-C) 1. How often do you have a drink containing alcohol?: Monthly or less 2. How many drinks containing alcohol do you have on a typical day when you are drinking?: 1 or 2 3. How often do you have six or more drinks on one occasion?: Never Total Score: 1 Score Reviewed/Action Taken: No SIRIA-7 AMB Questionnaire SIRIA-7 Date SIRIA - 7 assessed: 02/28/25 Feeling nervous, anxious, or on edge: 0 = Not at all Not being able to stop or control worryin = Not at all Worrying too much about different things: 0 = Not at all Trouble relaxin = Not at all Being so restless that it is hard to sit still: 0 = Not at all Becoming easily annoyed or irritable: 0 = Not at all Feeling afraid as if something awful might happen: 0 = Not at all Total SIRIA-7 score (0-4 normal; 5-9 mild; 10-14 moderate; 15-21 severe): 0 Source: Developed by Drs. Ed Mendieta, Kerri Mahoney, Micah Burr and colleagues, with an educational carmen from [employer]. SIRIA-7 Assessment Billing SIRIA-7 Assessment Tool: SIRIA-7 Assessment 30569 Review of Systems Const All systems reviewed & are unremarkable except as noted in HPI and below Card Denies chest pain at rest, Denies chest pain with activity, Denies edema, Denies irregular heart rhythm, Denies claudication, Denies dyspnea, Denies dyspnea on exertion, Denies orthopnea, Denies paroxysmal nocturnal dyspnea and Denies slow heart rate Resp Denies cough, Denies dyspnea and Denies dyspnea on exertion GI Denies abdominal pain, Denies change in bowel habits, Denies excessive flatus, Denies nausea and Denies vomiting Physical exam (Primary Care) Vital Signs: Last Vital Signs Temp 97.1 F 02/28/25 08:18 Pulse 128 H 02/28/25 08:18 BP 122/84 02/28/25 08:48 Pulse Ox 99 02/28/25 08:18 Oxygen Delivery Method Room Air 02/28/25 08:18 BMI result Body Mass Index 20.9 Tobacco/Smoking Status: Tobacco use Status Tobacco use date assessed 02/28/25 02/28/25 08:23 Patient Tobacco Use Status Never used Tobacco 02/28/25 08:23 Tobacco use type Cigarette 02/28/25 08:23 e-Cigarette/Vaping Use Never Used 02/28/25 08:23 PHQ-9: PHQ-9 Score PHQ-9: Total score 0 02/28/25 08:29 Depression Screening Interpretation: Negative Thrive Assessment: Date of Thrive Assessment Date Thrive assessed 02/21/25 02/28/25 08:23 Currently or been in a relationship where the following occur: No concerns reported HENNY Head: Yes normal to inspection, Yes normocephalic and Yes atraumatic Ears: external ears normal Eyes General: appearance normal, both eyes and all related structures Eyelids: Yes eyelids normal Conjunctivae: conjunctivae normal Neck Neck: Yes normal visual inspection and Yes supple Resp Effort & Inspection: normal respiratory effort Auscultation: clear to auscultation bilaterally Cardio Jugular venous distension: no JVD Rate: regular rate Rhythm: regular rhythm Heart sounds: S1 normal heart sound present and S2 normal heart sound present GI Inspection: Yes normal to inspection Palpation (GI): Soft to palpation and nontender Auscultation: normal bowel sounds Skin General skin exam: no rashes or lesions noted Neuro General: no focal motor deficits Extrem General: Yes full ROM Psych Appearance: grossly normal Office Procedures Flu Questionnaire Does the patient have a severe egg allergy?: No Does the patient have severe life threatening allergies?: No Does the patient have a fever or illness today?: No Has the patient ever had Guillain-[place] Syndrome?: No Has the patient ever had any past reaction to a flu shot?: No Immunizations Fluarix [id number] (PF) 45 mcg (15 mcg x 3)/0.5 mL IM syringe Performing Provider: Thu Guerrero [place] [facility] [place] [facility] Administered by: Alice Rouse LPN on 02/28/25 09:01 Dose Route Admin Location Dispensed Lot Number Expiration Date [facility] Data Conversion Analyst 0.5 mL IM Left Deltoid 0.5 mL [id number] 10/30/25 [id number] [employer] VIS Given Date VIS Provided VIS Publication Date 02/28/25 Single Vaccine 24 Eligibility Eligibility Date Funding Source Not [facility] Eligible 02/28/25 Private pneumoc 20-lorena conj-dip cr(PF) 0.5 mL IM syringe Performing Provider: Thu Guerrero MD [place] [facility] [place] Administered by: Alice Rouse LPN on 02/28/25 09:01 Dose Route Admin Location Dispensed Lot Number Expiration Date NDC Data Conversion Analyst 0.5 mL IM Right Deltoid 0.5 mL [id number] 03/02/26 [employer] Total Dispensed Waste 0.5 mL 0 % VIS Given Date VIS Provided VIS Publication Date 02/28/25 Single Vaccine 24 Eligibility Eligibility Date Funding Source Not [facility] Eligible 02/28/25 Private Coding Level of Care Code Est Pt Prev Care >65y(63706) Diagnoses Physical exam Z00.00 Additional Codes SIRIA-7 Assessment Billing - SIRIA-7 Assessment Tool: SIRIA-7 Assessment 47625 ([id number]) PHQ-9 - 17397 - PHQ-9 Billing: Yes ([id number]) Time Spent (min) 32 Assessment & Plan Assessment & Plan (1) Physical exam: Code(s): Z00.00 - Encounter for general adult medical examination without abnormal findings Category: Medical Plan Plan 1. Physical exam Repeat in a year. PCV 20 and flu vaccine done today. Tdap vaccine due for 2033. Mammogram due for next year. DEXA scan scheduled for next week. Colonoscopy done 2023 showing hyperplastic polyp and sessile serrated polyp. 2. Hypercholesterolemia The patient's total cholesterol is elevated at 274. Her 10-year ASCVD risk was calculated at 6.8% using the Letona risk score, which indicates that medication is recommended to lower her risk of heart attack or stroke. Despite her frustration with the results, it was noted her good diet is reflected in her normal triglycerides and HDL. A low dose of atorvastatin will be prescribed to prevent arterial plaque buildup. We will repeat cholesterol labs in six months, at which time we will also test for familial lipid disorders. Increased dietary fiber, such as daily oatmeal, was also suggested as a measure to help lower cholesterol. 3. Chronic Back Pain The patient reports significant chronic back pain, which contributes to her anxiety. It was suggested she could try topical Biofreeze or Arnica ointment. Incorporating 10 minutes of yoga was also recommended to help with muscle tightness and relaxation. Occasional use of Motrin is deemed safe given her well-controlled blood pressure and normal kidney function. 4. Hypertension The patient's blood pressure is well controlled at home on losartan 50 mg daily. She will continue her current medication and home monitoring. 5. Gastroesophageal Reflux Disease The patient uses Prilosec (omeprazole) as needed for heartburn. She was advised that daily long-term use can cause vitamin B12 and magnesium deficiencies, but her as-needed use is appropriate. She may continue taking it as needed. Orders: Orders Comprehensive [place]. Panel Fast 6 Months E78.00 - Pure hypercholesterolemia, unspecified Influenza 9224-1366 Immunization Today Z23 - Encounter for immunization Pneumococcal 20 Immunization Today Z23 - Encounter for immunization Lipid Panel 6 Months E78.5 - Hyperlipidemia, unspecified Medications: New atorvastatin (Lipitor) 10 mg PO BEDTIME 90 tabs 1RF 90 days E78.00 - Pure hypercholesterolemia, unspecified
[2025-02-28 08:48] VITALS: BP 122/84
== END 2025-02-28 09:00 | disposition home or self-care (01) ==
LOC: HO.HMCH 08:15
PROVIDERS: PCP Internal Medicine; Visit Provider Internal Medicine
DX: Z00.00 Encounter for general adult medical examination without abnormal findings (principal); Z23 Encounter for immunization

== ENCOUNTER → 2025-02-28 08:14 | Outpatient (BNVA) | payer MEDICARE, OTHER, SELFPAY | PROVIDERS: PCP Internal Medicine; Visit Provider Internal Medicine | DX: Z00.00 Encounter for general adult medical examination without abnormal findings (principal); Z13.31 Encounter for screening for depression; Z13.39 Encounter for screening examination for other mental health and behavioral disorders; Z23 Encounter for immunization; I10 Essential (primary) hypertension; E78.00 Pure hypercholesterolemia, unspecified; M54.50 Low back pain, unspecified; G89.29 Other chronic pain; E78.5 Hyperlipidemia, unspecified | CPT/HCPCS: 90471; 90656; 90677; 96127; 99397 ==

== ENCOUNTER 2025-03-14 09:54 | Outpatient (REF) | payer MEDICARE, OTHER, SELFPAY ==
--- NOTE | ~2025-03-14 | MM_ITS ---
EXAMINATION: DXA BONE DENSITY AXIAL HISTORY: Z78.0 - Asymptomatic menopausal state TECHNIQUE: Modlar Dual energy absorptiometry (DEXA) of the lumbar spine, total left hip, and femoral neck was performed. COMPARISON: Comparison is made with the prior examination dated March 2023 and December 2014. FINDINGS: The bone mineral density of the lumbar spine is 0.997 g/cm2, corresponding to a T-score of -1.5, and a Z-score of 0.5. This is indicative of osteopenia. This represents a BMD change of 10.4% compared to the prior exam. The bone mineral density of the left total hip is 0.740 g/cm2, corresponding to a T-score of -2.1, and a Z-score of -0.6. This is indicative of osteopenia. This represents a BMD change of -3%% compared to the prior exam. This is not statistically significant. The bone mineral density of the left femoral neck is 0.667 g/cm2, corresponding to a T-score of -2.7, and a Z-score of -0.9. This is indicative of osteoporosis. This represents a BMD change of 1.7% compared to the prior exam. This is not statistically significant. FRACTURE RISK: The FRAX index suggests a ten year probability of major osteoporotic fracture of 13.2%, and of hip fracture 3.4%. MM/XR DEXA axial skeleton IMPRESSION: Based on bone mineral density, and according to World Health Organization (WHO) criteria, the diagnosis is consistent with osteoporosis based on lowest T score of -2.7 in the left femoral neck. No appreciable change compared to most recent exam March 2023. Fracture risk is high. Treatment Recommendations: NOF guidelines recommend consideration for treatment in postmenopausal women and men age 50 and older presenting with the following: -A hip or vertebral (clinical or morphometric) fracture. -T-score less than or equal to -2.5 at the femoral neck or spine after appropriate evaluation to exclude secondary causes. -Low bone mass at the hip or spine and a 10-year fracture probability by FRAX of greater than or equal to 3% for hip fracture or greater than or equal to 20% for major osteoporotic fracture based on the [place] adapted WHO algorithm. Other Recommendations: All treatment decisions require clinical judgment and consideration of individual patient factors, including patient preferences, comorbidities, previous drug use, risk factors not captured in the FRAX model (e.g. frailty, falls, vitamin D deficiency, increased bone turnover, interval significant decline in bone density) and possible under or overestimation of fracture risk by FRAX. Additional medical evaluation for secondary cause of low bone mineral density may be appropriate. FUTURE SCAN RECOMMENDATION: People with diagnosed cases of osteoporosis or at high risk for fracture should have regular bone mineral density tests. For patients eligible for Medicare, routine testing is allowed once every 2 years. The testing frequency can be increased to one year for patients who have rapidly progressing disease, those who are receiving or discontinuing medical therapy to restore bone mass, or have additional Statistically, 68% of repeat scans fall within 1 SD (+/- 0.010 g/cm2 for AP spine L1-L4) and 1 SD (+/- 0.012 g/cm2 for femur total) FRAX is a trademark of the [employer]'s [employer], a World Health Organization (WHO) Collaborating Center. Electronically signed by: Jessica Mayers MD 03/14/2025 10:30 AM [facility]
--- OUTSIDE RECORDS SUMMARY | 2025-03-14 11:30 | XMS_ITS | Clinical Summary ---
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 Active Active Problems No known active problems Social History Tobacco Use Types Packs/Day Years Used Date Smoking Tobacco: Never Smokeless Tobacco: Never Alcohol Use Standard Drinks/Week Comments Not Currently 0 (1 standard drink = 0.6 oz pur e alcohol) Education Answer Date Recorded Are you interested in more education? Not on ruben e 08/28/2022 Are you concerned about learning? Not on file 08/28/2022 No 08/28/2022 No 08/28/2022 Digital Access Answer Date Recorded No 09/26/2022 No 09/26/2022 No 09/26/2022 Reliable internet access at home? Not on file 09/26/2022 Device with a working camera? Not on file Comments Unknown Sex and Gender Information Value Date Recorded Sex Assigned at Not on file Legal Sex Female 8:16 AM EST Gender Identity Not on file Sexual Orientation Not on file Last Filed Vital Signs Vital Sign Reading Time Taken Comments Blood Pressure 130/71 05/10/2019 3:11 PM EST Pulse 78 05/10/2019 3:11 PM EST Temperature - - Respiratory Rate - - Oxygen Saturation - - Inhaled Oxygen Concentration - - Weight 54.4 kg (120 lb) 05/10/2019 3:11 PM EST Height 154.9 cm (5' 1 ) 05/10/2019 3:11 PM EST Body Mass Index 22.67 05/10/2019 3:11 PM EST Plan of Treatment Health Maintenance Due Date Last Done Comments Adult Td,Tdap Booster 1959 LIPID PANEL 1959 DEPRESSION SCREENING 1971 HEPATITIS C SCREENING 1977 HIV ONE-TIME SCREENING (18-65 YEARS) 1977 COLOGUARD 2004 COLONOSCOPY 2004 COLORECTAL CANCER SCREENING 2004 FIT TEST 2004 FOBT 2004 SIGMOIDOSCOPY 2004 VIRTUAL COLONOSCOPY 2004 PNEUMOCOCCAL VACCINES (50+ years) (1 of 1 - PCV) 2009 ZOSTER VACCINES (1 of 2) 2009 OSTEOPOROSIS SCREENING INITIAL (ONE-TIME) 2024 INFLUENZA VACCINE (#1) 2024 , 01/30/2019, 02/04/2018, Additional history exists COVID-19 VACCINE (2 - 2024- season) 2025 07/05/2020 MAMMOGRAM 07/14/2025 07/15/2023 RSV VACCINE (1 - 1-dose 75+ series) 2034 SMOKING STATUS SCREENING (Once After 26 Yrs) Completed 05/10/2019 HEPATITIS A VACCINES Aged Out No long er eligible based on patient's age to complete this topic HIB VACCINES Aged Out No longer eligi ble based on patient's age to complete this topic IPV VACCINES Aged Out No longer eligi ble based on patient's age to complete this topic MENINGOCOCCAL VACCINES (ACWY) Aged Out No longer eligible based on patient's age to complete this topic MENINGOCOCCAL VACCINES (B) Aged Out N o longer eligible based on patient's age to complete this topic Medical Devices Not on file Procedures Procedure Name Priority Date/Time Associated Diagnosis Comments MAMMOGRAPHY Routine 07/15/2023 9:30 AM EDT from Last 3 Months or Most Recently Relevant to Health Maintenance Results * MAMMOGRAPHY FOR RESULT ENTRY ONLY (07/15/2023 9:30 AM EDT) Historical Provider MD HEALTH MAINTENANCE Final Result from Last 3 Months or Most Recently Relevant to Health Maintenance [place] [address] [place] [address] [address] [place] [address] HMO POS [facility] [place] [address] [place] [address] [address] [place] [address] POS Member Subscriber Plan / Payer (Ef fective 2011-Present) Name:Sonya Saldaña Relation to Subscriber:Self Name:Belton, Sonya Payer ID:[id number] (NAIC) Type:HMO Address: [address] [place] [address] HMO POS Member Subscriber Plan / Payer (Ef fective 2011-Present) Name:Belton, Sonya Relation to Subscriber:Self Name:Sonya Saldaña Payer ID:[id number] (NAIC) Type:HMO Address: [address] [place], [place] [address] [address] [place] [address] [address] [place] [address] POS Care Teams 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 It is not the complete legal health record.[facility]
== END 2025-03-14 09:55 | disposition home or self-care (01) ==
LOC: HO.MAMMO 09:54
PROVIDERS: PCP Internal Medicine; Visit Provider Internal Medicine
DX: Z13.820 Encounter for screening for osteoporosis (principal); Z78.0 Asymptomatic menopausal state
CPT/HCPCS: 77080

== ENCOUNTER → 2025-03-14 10:00 | Outpatient (BNV) | payer MEDICARE, OTHER, SELFPAY | PROVIDERS: PCP Internal Medicine; Visit Provider Radiology Diagnostic Radiology | DX: E28.39 Other primary ovarian failure (principal) | CPT/HCPCS: 77080 ==